=== PATIENT | male | born 1965 | race Caucasian/White ===

== ENCOUNTER 2017-10-07 10:08 | Emergency (ER) | payer OTHER ==
[2017-10-07 10:18] VITALS: RESP 18
--- NOTE | 2017-10-07 10:50 | ED ---
General Adult HPI - General Chief complaint: Dental/Oral Stated complaint: Abscess Tooth Time Seen by Provider: 10/07/17 10:21 Source: patient, RN notes reviewed Mode of arrival: ambulatory Limitations: no limitations - History of Present Illness Initial comments: Patient 52-year-old male presenting to the emergency room today with a chief complaint of dental abscess. He does admit to pain to tooth #22. He states he went to the dentist. Weeks ago for a root canal. He states the symptoms started shortly after that time. He states it is felt some swelling to left side. He states he's been using anti-inflammatories and an old prescription of clindamycin. States feels like it's a little worse today. He denies any other complaints or symptoms. Denies any difficult swallowing or breathing. Patient denies any recent fever, chills, shortness of breath, chest pain, back pain, abdominal pain, nausea or vomiting, numbness or tingling, dysuria or hematuria, constipation or diarrhea, headaches or visual changes, or any other complaints. - Related Data Previous Rx's Medication Instructions Recorded Acetaminophen-Codeine 300-30mg 1 each PO Q6H PRN #10 tablet 10/07/17 [Tylenol #3] Penicillin V Potassium [Pen Vee K] 500 mg PO QID #40 tablet 10/07/17 Allergies Allergy/AdvReac Type Severity Reaction Status Date / Time No Known Allergies Allergy Verified 10/07/17 10:18 Review of Systems ROS Statement: Those systems with pertinent positive or pertinent negative responses have been documented in the HPI. ROS Other: All systems not noted in ROS Statement are negative. Past Medical History Past Medical History: Hypertension, Skin Disorder Additional Past Medical History / Comment(s): murmur History of Any Multi-Drug Resistant Organisms: None Reported Past Surgical History: No Surgical Hx Reported Past Psychological History: No Psychological Hx Reported Smoking Status: Current every day smoker Past Alcohol Use History: Occasional Past Drug Use History: None Reported General Exam - General Exam Comments Initial Comments: General: The patient is awake and alert, in no distress, and does not appear acutely ill. Eye: Pupils are equal, round and reactive to light, extra-ocular movements are intact. No nystagmus. There is normal conjunctiva bilaterally. No signs of icterus. Ears, nose, mouth and throat: There are moist mucous membranes and no oral lesions. Patient does have tenderness gumline of tooth #22. No sign of abscess. Uvula midline. Tolerating oral secretions. Neck: The neck is supple, there is no tenderness or JVD. Cardiovascular: There is a regular rate and rhythm. No murmur, rub or gallop is appreciated. Respiratory: Lungs are clear to auscultation, respirations are non-labored, breath sounds are equal. No wheezes, stridor, rales, or rhonchi. Musculoskeletal: Normal ROM, no tenderness. Strength 5/5. Sensation intact. Pulses equal bilaterally 2+. Neurological: A&O x 3. CN II-XII intact, There are no obvious motor or sensory deficits. Coordination appears grossly intact. Speech is normal. Skin: Skin is warm and dry and no rashes or lesions are noted. Psychiatric: Cooperative, appropriate mood & affect, normal judgment. Limitations: no limitations Course Vital Signs 10/07/17 10:14 Temperature 98.4 F Pulse Rate 60 Respiratory 18 Rate Blood Pressure 141/89 O2 Sat by Pulse 97 Oximetry Medical Decision Making - Medical Decision Making Patient will be placed on penicillin. Given a short prescription of Tylenol 3 for pain. Advised to follow-up dentist over the next 2 days. Disposition Clinical Impression: Dental abscess Disposition: HOME SELF-CARE Condition: Good Instructions: Dental Abscess (ED) Additional Instructions: Please use medication as discussed. Please follow-up with dentist over the next 2 days. Please return to emergency room if the symptoms increase or worsen or for any other concerns. Prescriptions: Acetaminophen-Codeine 300-30mg [Tylenol #3] 1 each PO Q6H PRN #10 tablet PRN Reason: Pain Penicillin V Potassium [Pen Vee K] 500 mg PO QID #40 tablet Is patient prescribed a controlled substance at d/c from ED?: No Referrals: Nonstaff,Physician [Primary Care Provider] - 1-2 days Time of Disposition: 10:46
[2017-10-07 11:15] VITALS: BP 143/74; PULSE 77; TEMP 97.4
== END 2017-10-07 11:14 | disposition home or self-care (01) ==
LOC: EC 10:08
DX: K04.7 Periapical abscess without sinus (principal); F17.200 Nicotine dependence, unspecified, uncomplicated
CPT/HCPCS: 99282